=== PATIENT | female | born 1975 | race Two or more races ===

== ENCOUNTER 2020-09-12 12:26 | Outpatient (REF) | payer OTHER, SELFPAY ==
--- NOTE | 2020-09-12 | MM_ITS ---
EXAMINATION: MM DIAGNOSTIC DIGITAL BREAST TOMOSYNTHESIS, BILATERAL US DIAGNOSTIC ULTRASOUND BREAST, LEFT CLINICAL INFORMATION: 44-year-old with palpable area of concern noted at clinical exam 9:00 left breast. Family history breast cancer in mother, age 53. Prior outside mammography from [facility] currently unavailable. The lifetime risk of breast cancer based on the Tyrer-Cuzick Model is 8%. COMPARISON: None. Radiology department staff will attempt to retrieve prior outside mammography to allow for comparison in an addendum report. TECHNIQUE: Digital breast tomosynthesis is performed in both the craniocaudal and mediolateral oblique views along with computer-aided detection (CAD). Synthesized 2D images are generated from the tomosynthesis. Ultrasound is targeted to the medial left breast. Grayscale imaging and color Doppler are performed without and with harmonics. FINDINGS: There are scattered areas of fibroglandular density (ACR BI-RADS breast composition Category b). There are no significant masses, abnormal calcifications, or other abnormalities. No suspicious parenchymal asymmetry. The skin contours are smooth. There is no coarsening of the Kentrell's ligaments. Ultrasound left breast shows no cystic or solid mass or architectural abnormality. No focal duct ectasia. No skin thickening or edema tracking in soft tissue planes. Results are discussed with the patient at time of visit. IMPRESSION: 1. No mammographic evidence of malignancy. 2. Unremarkable targeted left breast ultrasound. ASSESSMENT: BI-RADS 1: Negative RECOMMENDATION: 1. Patient should be managed based on the clinical impression. If clinically indicated, further evaluation may be considered with surgical consult. Decision to proceed with biopsy should be based on clinical grounds and degree of clinical concern. 2. Radiology department staff will attempt to retrieve prior outside mammography to allow for comparison in an addendum report. 3. Otherwise, routine annual screening mammography. This patient's information was entered into a reminder system with a target due date for their next mammogram.
== END 2020-09-12 12:27 | disposition home or self-care (01) ==
LOC: HO.MAMMO 12:26
PROVIDERS: PCP Internal Medicine; Visit Provider Advanced Practice Midwife
DX: N60.02 Solitary cyst of left breast (principal)
CPT/HCPCS: 76642; 77062; 77066; 78013

== ENCOUNTER 2021-12-04 15:16 | Outpatient (REF) | payer OTHER, SELFPAY ==
--- NOTE | ~2021-12-04 | MM_ITS ---
EXAMINATION: MM SCREENING DIGITAL BREAST TOMOSYNTHESIS, BILATERAL CLINICAL INFORMATION: Screening. Asymptomatic. The lifetime risk of breast cancer based on the Tyrer-Cuzick Model is 14%. COMPARISON: Mammography: 09/12/2020, 06/11/2017 TECHNIQUE: Digital breast tomosynthesis is performed in both the craniocaudal and mediolateral oblique views along with computer-aided detection (CAD). Synthesized 2D images are generated from the tomosynthesis. FINDINGS: There are scattered areas of fibroglandular density (ACR BI-RADS breast composition Category b). There are no significant masses, abnormal calcifications, or other abnormalities. No developing density or architectural abnormality. The skin contours are smooth. MM/MM tomosynthesis screening BI IMPRESSION: No mammographic evidence of malignancy. ASSESSMENT: BI-RADS 1: Negative RECOMMENDATION: Routine annual mammography screening. This patient's information was entered into a reminder system with a target due date for their next mammogram.
== END 2021-12-04 15:17 | disposition home or self-care (01) ==
LOC: HO.MAMMO 15:16
PROVIDERS: PCP Internal Medicine; Visit Provider Internal Medicine
DX: Z12.31 Encounter for screening mammogram for malignant neoplasm of breast (principal)
CPT/HCPCS: 77063; 77067

== ENCOUNTER 2023-03-27 07:43 | Outpatient (REF) | payer OTHER, SELFPAY ==
--- NOTE | ~2023-03-27 | MM_ITS ---
EXAMINATION: MM SCREENING DIGITAL BREAST TOMOSYNTHESIS, BILATERAL CLINICAL INFORMATION: Screening. Asymptomatic. Family history breast cancer, mother. The lifetime risk of breast cancer based on the Tyrer-Cuzick Model is 14%. COMPARISON: Mammography: 12/04/2021, 09/12/2020, 06/11/2017 TECHNIQUE: Digital breast tomosynthesis is performed in both the craniocaudal and mediolateral oblique views along with computer-aided detection (CAD). Synthesized 2D images are generated from the tomosynthesis. FINDINGS: There are scattered areas of fibroglandular density (ACR BI-RADS breast composition Category b). Parenchymal pattern is similar to prior exams and there is no developing density or interval or significant mass. There are some scattered calcifications again seen. The axilla and skin contours are unremarkable. No significant changes. MM/MM tomosynthesis screening BI IMPRESSION: No mammographic evidence of malignancy. ASSESSMENT: BI-RADS 2: Benign RECOMMENDATION: Routine annual mammography screening. This patient's information was entered into a reminder system with a target due date for their next mammogram.
== END 2023-03-27 07:44 | disposition home or self-care (01) ==
LOC: HO.MAMMO 07:43
PROVIDERS: PCP Internal Medicine; Visit Provider Internal Medicine
DX: Z12.31 Encounter for screening mammogram for malignant neoplasm of breast (principal)
CPT/HCPCS: 77063; 77067

== ENCOUNTER 2023-08-20 19:49 | Outpatient (REF) | payer OTHER, SELFPAY ==
[2023-08-23 02:59] LABS: HPV mRNA E6/E7 rflx Not Detected (Not Detected)
== END 2023-08-20 19:50 | disposition home or self-care (01) ==
LOC: HO.CHCLNP 19:49
PROVIDERS: Visit Provider Advanced Practice Midwife
DX: Z12.4 Encounter for screening for malignant neoplasm of cervix (principal); Z11.51 Encounter for screening for human papillomavirus (HPV)
CPT/HCPCS: 87624; 88142

== ENCOUNTER 2023-09-04 12:43 | Outpatient (REF) | payer OTHER, SELFPAY | END 2023-09-04 12:44 | disposition home or self-care (01) | LOC: HO.US 12:43 | PROVIDERS: PCP Internal Medicine; Visit Provider Advanced Practice Midwife | DX: D21.9 Benign neoplasm of connective and other soft tissue, unspecified (principal) | CPT/HCPCS: 76830; 76856 ==

== ENCOUNTER 2023-10-08 11:25 | Outpatient (REF) | payer OTHER, SELFPAY | END 2023-10-08 11:26 | disposition home or self-care (01) | LOC: HO.LNP 11:25 | PROVIDERS: PCP Internal Medicine; Visit Provider Obstetrics & Gynecology | DX: N93.9 Abnormal uterine and vaginal bleeding, unspecified (principal); R87.618 Other abnormal cytological findings on specimens from cervix uteri; N89.8 Other specified noninflammatory disorders of vagina | CPT/HCPCS: 58100; 81025; 88305 ==

== ENCOUNTER 2023-10-08 11:25 | Outpatient (AMB) | payer OTHER, SELFPAY ==
--- NOTE | 2023-10-08 11:29 | MHC.OFFVIS ---
Intake Vital Signs 10/08/23 11:34 Height 5 ft 1 in Weight 186 lb BMI 35.1 Intake Visit Reasons: SENIOR QUANTITY SURVEYOR Endometrial Myoma/Colpo Mercantile Agent Required: No Information Interpreted: non-clinical & clinical Microarray Operations Vice President: Microarray Operations Vice President Present (Chloe RODRIGUEZ) Accompanied by: Self / Same As Patient Allergies No Known Allergies Allergy (Verified 10/08/23 11:35) Is last menstrual period known: Yes Last menstrual period: 09/12/23 HPI HPI Comments History of Present Illness Details The patient is presenting referred from her PCP regarding endometrial cells on her recent Pap smear which was negative/HPV negative. The patient has been complaining of heavy menstrual cycle associated with pelvic cramping and passage of blood clots over the last few months. Pelvic ultrasound was done recently. Last mammogram was done in 03/24 was BI-RADS 2 [facility] Medical History (Updated 10/08/23 @ 11:57 by Apollo Mcdaniel MD) GERD (gastroesophageal reflux disease) Asthma Surgical History (Updated 10/08/23 @ 11:40 by Chloe Aparicio CMA) History of loop electrical excision procedure (LEEP) Hx of cholecystectomy Hx of tubal ligation Family History (Updated 10/08/23 @ 11:41 by Chloe Aparicio CMA) Mother Asthma Breast cancer Social History Household Members: Family Housing: Apartment Alcohol intake: never Patient Tobacco Use Status: Never used Tobacco Current occupational status: employed Current occupation: PSR in [employer] Sexual orientation: Straight/Heterosexual Gender identity: Female Female Reproductive History Menstrual Age of Menarche: 10 Duration of menses: 3-5 days Date of last menstrual period: 09/12/23 control method: permanent sterilization Total pregnancies: 2 Full term: 2 Number of Living Children: 2 Review of Systems Const All systems reviewed & are unremarkable except as noted in HPI and below Card Reports as per HPI Resp Reports as per HPI GI Reports as per HPI and Reports no additional complaints Reports as per HPI Physical Exam Vital Signs: BMI result Body Mass Index 35.1 Const General: cooperative, healthy appearing and comfortable Chest Chest palpation & inspection: normal inspection of the chest and normal palpation of entire chest wall Breast/axilla inspection: normal inspection of the breasts and normal inspection of the axillae Breast/axilla palpation: normal palpation of the breasts, normal palpation of the axillae and no axillary lymphadenopathy Resp Effort & Inspection: normal respiratory effort Auscultation: clear to auscultation bilaterally Percussion: percussion normal Cardio Palpation: normal PMI Rate: regular rate Rhythm: regular rhythm Heart sounds: no murmurs and no rubs Peripheral pulses: Peripheral pulses 2+ throughout GI Inspection: Yes normal to inspection Palpation (GI): Soft to palpation, nontender, no guarding, not rigid and No hepatosplenomegaly present Percussion: Yes normal to percussion Auscultation: normal bowel sounds Rectal Exam - Female: deferred General: Yes bladder normal to palpation External Female Exam: No lesion Speculum Exam - Vagina: normal palpation, normal vaginal discharge, not erythematous and other (Right vaginal wall 0.5 cm proximal dark lesion) Speculum Exam - Cervix: normal appearance of the cervix and normal palpation Bimanual exam- vagina & uterus: normal bimanual exam, normal palpation, uterine size normal, bladder normal to palpation, consistency normal and normal palpation Bimanual Exam- Adnexa, other: normal adnexae, no masses and no tenderness Office Procedures Endometrial Biopsy Details: The patient was counseled regarding the indication and benefits of endometrial sampling to rule out endometrial pathology including not limited to endometrial hyperplasia or endometrial cancer and others; The alternatives (Either do nothing vs. hysteroscopy D&C) & the risks were discussed with the patient including but not limited: pain, uterine perforation, bleeding, infection, possible injury to bladder, bowel, ureter, possible need for blood transfusion with all its possible risks. The patient verbalized understanding all questions answered and signed consent. The patient was placed into the dorsal lithotomy position; a speculum was inserted in the vagina. Using aseptic technique for the procedure, the cervix was cleansed with Betadine. The anterior lip of the cervix was grasped with a single tooth tenaculum. The uterus was sounded to 7 cm with a 4 mm Pipelle was used. Tissues samples were obtained and placed in formalin, in a patient labeled container and sent to the pathology department. At the end of the procedure, there was minimal bleeding noted The patient tolerated the procedure well and was discharged in good condition with the following instructions: Nothing in the vagina until the bleeding stops. No sex until the bleeding stops, to call if any of the following occurs: fever (>100.4), flu-like symptoms, abdominal pain, heavy bleeding, four smelling vaginal discharge. The patient was instructed to schedule a Follow up appointment in 2 weeks to discuss pathology results of the biopsy and treatment options. This note was generated with a voice recognition program. Some errors may have been overlooked during the review of this note. Sometimes these errors may affect the content or meaning of a given sentence. 25669-Cekvlvormfa Biopsy Results AMB Test Urine AMB Test Urine Negative Last Edit by Chloe Aparicio CMA on 10/08/23 11:48 Assessment & Plan Assessment & Plan (1) Abnormal uterine bleeding: Code(s): N93.9 - Abnormal uterine and vaginal bleeding, unspecified Plan: GC and chlamydia taken CBC, TSH, HCG, prolactin, FSH/LH ordered. Pelvic ultrasound done recently. Discussed with the patient the different causes of abnormal bleeding including thyroid disorders, uterine and ovarian pathology, endometrial hyperplasia, carcinoma and other potential causes. Discussed with the patient the work up including CBC (to r/o anemia), TSH, prolactin, FSH/LH, pelvic Ultrasound (recently done), endometrial biopsy to r/o endometrial pathology. All questions answered and the patient verbalized understanding. Instructed the patient to schedule an appointment for an endometrial biopsy in 2 weeks. (2) Unexplained endometrial cells on cervical Pap smear: Code(s): R87.618 - Other abnormal cytological findings on specimens from cervix uteri Plan: Discussed the patient the results of Pap smear showing normal endometrial cells, recommended endometrial sampling to rule out endometrial pathology including endometrial hyperplasia and/or malignancy, EMB done, see procedure note (3) Vaginal lesion: Code(s): N89.8 - Other specified noninflammatory disorders of vagina Plan: Discussed with the patient the finding on pelvic exam showing a right 0.5 cm proximal vaginal lesion, recommended excisional biopsy. Instructions given to patient to schedule an appointment for excision biopsy within 2 weeks. All questions answered, the patient verbalized understanding Orders: Orders CT NG by PCR Today N93.9 - Abnormal uterine and vaginal bleeding, unspecified, R87.618 - Other abnormal cytological findings on specimens from cervix uteri AMB Endometrial Biopsy Today N93.9 - Abnormal uterine and vaginal bleeding, unspecified, R87.618 - Other abnormal cytological findings on specimens from cervix uteri AMB HCG Urine Test Today Z32.02 - Encounter for test, result negative Surgical Today N93.9 - Abnormal uterine and vaginal bleeding, unspecified, R87.618 - Other abnormal cytological findings on specimens from cervix uteri Coding Level of Care Code New Pt Level 3 (16444) Procedure Only Diagnoses Abnormal uterine bleeding N93.9 Unexplained endometrial cells on cervical Pap smear R87.618 Vaginal lesion N89.8 CPT Codes Endometrial Biopsy - CPT: 18719-Qobgtominva Biopsy ([id number])
[2023-10-08 11:34] VITALS: BMI 35.1
== END 2023-10-08 12:09 | disposition home or self-care (01) ==
PROVIDERS: PCP Internal Medicine; Visit Provider Obstetrics & Gynecology
DX: N93.9 Abnormal uterine and vaginal bleeding, unspecified (principal); R87.618 Other abnormal cytological findings on specimens from cervix uteri; N89.8 Other specified noninflammatory disorders of vagina; Z32.02 Encounter for pregnancy test, result negative
CPT/HCPCS: 58100

== ENCOUNTER 2023-10-08 12:09 | Outpatient (REF) | payer OTHER, SELFPAY ==
[2023-10-08 13:46] LABS: Hematocrit 35.4 % (37.0-47.0); Hemoglobin 11.4 g/dl (12.0-16.0); Mean Corpuscular HGB Conc 32.2 g/dl (31.0-35.0); Mean Corpuscular Hemoglobin 27.1 pg (27.0-33.0); Mean Corpuscular Volume 84.3 fL (80.0-98.0); Platelet Count 305 X10*3/uL (160-400); Red Cell Distribution Width 14.2 % (11.0-16.0); White Blood Count 8.7 X10*3/uL (4.8-10.8)
[2023-10-08 14:32] LABS: HCG Quantitative < 2 mIU/mL; TSH reflex Free T4 1.39 uIU/mL (0.32-4.0)
[2023-10-09 12:33] LABS: CT PCR NOT DETECTED (Not Detect.); NG PCR NOT DETECTED (Not Detect.)
[2023-10-10 02:58] LABS: Follicle Stimulating Hormone 6.5 mIU/mL; Lutenizing Hormone 2.9 mIU/mL; Prolactin 5.9 ng/mL
== END 2023-10-08 12:10 | disposition home or self-care (01) ==
LOC: HO.LAB 12:09
PROVIDERS: Visit Provider Obstetrics & Gynecology
DX: N93.9 Abnormal uterine and vaginal bleeding, unspecified (principal); R87.618 Other abnormal cytological findings on specimens from cervix uteri; Z20.2 Contact with and (suspected) exposure to infections with a predominantly sexual mode of transmission
CPT/HCPCS: 0353U; 83001; 83002; 84146; 84443; 84702; 85027

== ENCOUNTER 2023-11-20 07:30 | Outpatient (REF) | payer OTHER, SELFPAY | END 2023-11-20 07:31 | disposition home or self-care (01) | LOC: HO.LNP 07:30 | PROVIDERS: PCP Internal Medicine; Visit Provider Obstetrics & Gynecology | DX: N89.8 Other specified noninflammatory disorders of vagina (principal) | CPT/HCPCS: 56605; 88305 ==

== ENCOUNTER 2023-11-20 07:30 | Outpatient (AMB) | payer OTHER, SELFPAY ==
--- NOTE | 2023-11-20 07:33 | MHC.OFFVIS ---
Intake Vital Signs 11/20/23 07:37 Height 5 ft 1 in Weight 185 lb 3.013 oz BMI 35.0 BP 122/72 Intake Visit Reasons: EMB Result/Vulva lesion Smoke Eater Required: No Information Interpreted: non-clinical & clinical Top Screw: Top Screw Present (Chloe RODRIGUEZ) Accompanied by: Self / Same As Patient Allergies No Known Allergies Allergy (Verified 11/20/23 07:38) Is last menstrual period known: Yes Last menstrual period: 11/04/23 HPI HPI Comments History of Present Illness Details Presenting for right vaginal bleeding biopsy PFSH Medical History (Updated 10/08/23 @ 11:57 by Apollo Mcdaniel MD) GERD (gastroesophageal reflux disease) Asthma Surgical History (Updated 10/08/23 @ 11:40 by Chloe Aparicio CMA) History of loop electrical excision procedure (LEEP) Hx of cholecystectomy Hx of tubal ligation Family History (Updated 10/08/23 @ 11:41 by Clhoe Aparicio CMA) Mother Asthma Breast cancer Social History (Updated 10/08/23 @ 11:43 by Chloe Aparicio CMA) Household Members: Family Housing: Apartment Alcohol intake: never Patient Tobacco Use Status: Never used Tobacco Current occupational status: employed 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 Preop dx: Right vaginal dark lesion Op: Right vaginal dark lesion excisional biopsy Post op: Same Anesthesia: Lidocaine 1% 3cc used Procedure: Using betadine the area was scrubbed and draped in the usual manner. 3 cc of lidocaine was used for anesthesia at the left vulvar lesion area ; using scissors and pickup the Right vaginal dark lesion was excised, Vicryl was used to approximate the edges. Pressure was used for hemostasis. The patient tolerated the procedure well. Discharge Instructions: The patient was instructed to schedule an appointment in 2 weeks for follow-up and to call if temp>100.4, area of the biopsy redness or pain, nausea/vomiting. This note was generated with a voice recognition program. Some errors may have been overlooked during the review of this note. Sometimes these errors may affect the content or meaning of a given sentence. 38195-Cgyibd of Vulva/Perineum Procedure code (CPT) selection complete Assessment & Plan Assessment & Plan (1) Vaginal lesion: Code(s): N89.8 - Other specified noninflammatory disorders of vagina Plan: Right vaginal excision lesion biopsy done, see procedure Orders: Orders AMB ACCOUNTS RECEIVABLE ADMINISTRATOR Biopsy Today N89.8 - Other specified noninflammatory disorders of vagina Coding Level of Care Code Procedure Only Diagnoses Vaginal lesion N89.8 CPT Codes ACCOUNTS RECEIVABLE ADMINISTRATOR Biopsy - CPT: 26424-Wssrfc of Vulva/Perineum ([id number])
[2023-11-20 07:37] VITALS: BP 122/72; BMI 35.0
== END 2023-11-20 08:54 | disposition home or self-care (01) ==
PROVIDERS: PCP Internal Medicine; Visit Provider Obstetrics & Gynecology
DX: N89.8 Other specified noninflammatory disorders of vagina (principal)
CPT/HCPCS: 56605

== ENCOUNTER 2023-12-24 08:04 | Outpatient (AMB) | payer OTHER, SELFPAY ==
--- NOTE | 2023-12-24 08:06 | MHC.OFFVIS ---
Intake Vital Signs 12/24/23 08:12 Height 5 ft 1 in Weight 185 lb 3.013 oz BMI 35.0 BP 102/72 Intake Visit Reasons: Biopsy Results/EMB Results Desulfurizer Operator Required: No Information Interpreted: non-clinical & clinical Accompanied by: Daughter Allergies No Known Allergies Allergy (Verified 12/24/23 08:13) Is last menstrual period known: Yes Last menstrual period: 12/05/23 HPI HPI Comments History of Present Illness Details The patient is presenting for follow-up to discuss the results of her abnormal uterine bleeding workup and options of treatment. The following workup was done.: H&H= 11.4/35.4 TSH, prolactin, hCG, GC and chlamydia were negative. FSH/LH 6.5/2.9, premenopausal range Endometrial biopsy pathology showed secretory endometrium with no evidence of hyperplasia and/or malignancy. Co testing was done was negative, with endometrial cells present. Mammogram was BI-RADS 1. Vulvar lesion biopsy pathology showed benign cyst consistent with Bartholin's gland cyst Pelvic ultrasound showed the following: The uterus is of normal size and echogenicity, measuring 12.6 x 7.9 x 8.6 cm. The uterus is anteverted. A regular, homogeneous endometrium is identified measuring 1.7 cm. Nabothian cysts are seen within the cervix FIBROIDS: There are 3 fibroids seen. 1. Location: Posterior body, myometrial. Size: 1.6 x 1.2 x 1.5 cm. Prior: 1.8 x 0.9 x 1.4 cm. Fibroid characteristics: Heterogeneously hyperechoic. 2. Location: Anterior body, myometrial. Size: 1.9 x 1.8 x 1.6 cm. Prior: 1.0 x 0.7 x 0.9 cm. Fibroid characteristics: Heterogeneous echotexture. 3. Location: Fundal, myometrial. Size: 5.7 x 5.9 x 6.1 cm. Prior: 3.7 x 3.0 x 3.6 cm. Fibroid characteristics: Heterogeneous echotexture. Both ovaries are of normal size and echogenicity. The right ovary measures 3.6 x 1.5 x 1.5 cm for a volume of 4.2 mL. The left ovary measures 3.5 x 1.9 x 2.8 cm for a volume of 9.6 mL. The left ovary contains a 2.2 cm benign, simple follicle, for which no imaging follow-up is recommended. There is no pelvic free fluid. 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[employer] Sexual orientation: Straight/Heterosexual Gender identity: Female Female Reproductive History Menstrual Age of Menarche: 10 Date of last menstrual period: 12/05/23 Review of Systems Const All systems reviewed & are unremarkable except as noted in HPI and below Reports as per HPI and Reports no additional complaints GI Reports no additional complaints Reports no additional complaints Physical Exam Vital Signs: Last Vital Signs BP 102/72 12/24/23 08:12 BMI result Body Mass Index 35.0 Assessment & Plan Assessment & Plan (1) Abnormal uterine bleeding: Code(s): N93.9 - Abnormal uterine and vaginal bleeding, unspecified Plan: Discussed with the patient the results of the work up done and options of treatment including Lysteda, BCP's, Mirena IUD, endometrial ablation and hysterectomy. All pros, cons, risks and benefits if each option was discussed with the patient and the patient decided to go ahead with Lysteda , so a more detailed discussion re: Lysteda including mechanism of action, benefits, risks including but not limited to thrombosis and strokes, Instructions were given on how to use, 2 tablets p.o. 3 times a day day 1 up to 3-5 days of menses and to schedule a 3 months follow-up appointment. The patient verbalized understanding and agreed with the plan. (2) Uterine myoma: Code(s): D25.9 - Leiomyoma of uterus, unspecified Plan: Discussed with the patient the findings on pelvic ultrasound & the risk of myosarcoma; discussed with the patient the options of treatment including expectant management versus hysterectomy; the pros and cons, risks benefits of each approach were discussed with the patient including the fact that in cases of myosarcoma, surgical treatment can lead to early diagnosis and positively affects the prognosis; after further discussion, the patient decided to proceed with expectant management. Will repeat pelvic ultrasound in 6. Instructions given to patient to call in case any of the following occurs: pressure symptoms, abnormal uterine bleeding, pelvic pain; and to schedule a six-month office follow-up appointment after repeat ultrasound . All questions answered, the patient verbalized understanding and agreed with the plan . (3) Vaginal lesion: Code(s): N89.8 - Other specified noninflammatory disorders of vagina Plan: Discussed with the patient the results the pathology, the patient was reassured, all questions answered, the patient verbalized understanding. (4) Unexplained endometrial cells on cervical Pap smear: Code(s): R87.618 - Other abnormal cytological findings on specimens from cervix uteri Plan: Discussed with the patient the results the EMB pathology. All questions answered, the patient verbalized understanding Orders: Orders US pelvic and transvaginal 6 Months D25.9 - Leiomyoma of uterus, unspecified Medications: New tranexamic acid Start 1st day of menses and take it up to 3-5 days of menses. 1,300 mg (2 x 650 mg) PO TID 30 tabs 2RF 5 days Coding Level of Care Code Est Pt Level 3 (75714) Diagnoses Abnormal uterine bleeding N93.9 Uterine myoma D25.9 Vaginal lesion N89.8 Unexplained endometrial cells on cervical Pap smear R87.618
[2023-12-24 08:12] VITALS: BP 102/72; BMI 35.0
== END 2023-12-24 08:40 | disposition home or self-care (01) ==
LOC: HO.HWS 08:04
PROVIDERS: PCP Internal Medicine; Visit Provider Obstetrics & Gynecology
DX: N93.9 Abnormal uterine and vaginal bleeding, unspecified (principal); D25.9 Leiomyoma of uterus, unspecified; N89.8 Other specified noninflammatory disorders of vagina; R87.618 Other abnormal cytological findings on specimens from cervix uteri
CPT/HCPCS: 99213

== ENCOUNTER → 2023-12-24 08:04 | Outpatient (BNVA) | payer OTHER, SELFPAY | PROVIDERS: PCP Internal Medicine; Visit Provider Obstetrics & Gynecology ==

== ENCOUNTER 2024-03-31 13:09 | Outpatient (AMB) | payer OTHER, SELFPAY ==
[2024-03-31 13:19] VITALS: BMI 35.0
--- NOTE | 2024-03-31 13:19 | A.OFFVIS_ITS ---
Vital Signs 03/31/24 13:19 Height 5 ft 1 in Weight 185 lb 3.013 oz BMI 35.0 Intake Visit Reasons: Med follow up Floor Installer Required: No Information Interpreted: non-clinical & clinical Accompanied by: Daughter Allergies No Known Allergies Allergy (Verified 03/31/24 13:19) HPI Comments Details: Presenting for follow-up. The patient tried tranexamic acid for 3 months but did not seem to be relieving her heavy menstrual cycles. The following workup was done.: H&H= 11.4/35.4 TSH, prolactin, hCG, GC and chlamydia were negative. FSH/LH 6.5/2.9, premenopausal range Endometrial biopsy pathology showed secretory endometrium with no evidence of hyperplasia and/or malignancy. Co testing was done was negative, with endometrial cells present. Mammogram was BI-RADS 1. Vulvar lesion biopsy pathology showed benign cyst consistent with Bartholin's gland cyst Pelvic ultrasound showed the following: The uterus is of normal size and echogenicity, measuring 12.6 x 7.9 x 8.6 cm. The uterus is anteverted. A regular, homogeneous endometrium isident ified measuring 1.7 cm. Nabothian cysts are seen within the cervix FIBROIDS: There are 3 fibroids seen. 1. Location: Posterior body, myometrial. Size: 1.6 x 1.2 x 1.5 cm. Prior: 1.8 x 0.9 x 1.4 cm. Fibroid characteristics: Heterogeneously hyperechoic. 2. Location: Anterior body, myometrial. Size: 1.9 x 1.8 x 1.6 cm. Prior: 1.0 x 0.7 x 0.9 cm. Fibroid characteristics: Heterogeneous echotexture. 3. Location: Fundal, myometrial. Size: 5.7 x 5.9 x 6.1 cm. Prior: 3.7 x 3.0 x 3.6 cm. Fibroid characteristics: Heterogeneous echotexture. Both ovaries are of normal size and echogenicity. The right ovary measures 3.6 x 1.5 x 1.5 cm for a volume of 4.2 mL. The left ovary measures 3.5 x 1.9 x 2.8 cm for a volume of 9.6 mL. The left ovary contains a 2.2 cm benign, simple follicle, for which no imaging follow-up is recommended. There is no pelvic free fluid. No adnexal mass is seen [facility] Medical History GERD (gastroesophageal reflux disease) Asthma Surgical History History of loop electrical excision procedure (LEEP) Hx of cholecystectomy Hx of tubal ligation Family History Mother Asthma Breast cancer Social History Household Members: Family Housing: Apartment Alcohol intake: never Patient Tobacco Use Status: Never used Tobacco Current occupational status: employed Current occupation: PSR in [employer] Sexual orientation: Straight/Heterosexual Gender identity: Female Female Reproductive History Menstrual Age of Menarche: 10 Review of Systems Const All systems reviewed & are unremarkable except as noted in HPI and below Reports as per HPI and Reports no additional complaints GI Reports no additional complaints Reports no additional complaints Physical Exam Vital Signs: BMI result Body Mass Index 35.0 Assessment & Plan Assessment & Plan (1) Abnormal uterine bleeding: Comment: With uterine myomas Code(s): N93.9 - Abnormal uterine and vaginal bleeding, unspecified Category: Medical Plan: Discussed with the patient the results of the ultrasound and the size of the myomas. In addition discussed with the patient options of treatment for myomas including: Serial ultrasounds periodically to follow-up on the size of the myoma while targeting the treatment against fibroids related symptoms ( control pills, Mirena IUD, progesterone treatment, GnRH agonist/antagonist, uterine artery embolization or endometrial ablation) versus surgical treatment including hysterectomy and or myomectomy. All pros and cons, risks and benefits of all options were discussed with the patient. The patient decided to proceed with surgical management. Discussed with the patient the different types of hysterectomies including, vaginal, laparoscopic assisted vaginal, robotic assisted laparoscopic,& abdominal with BSO. All pros, cons, r/b of each approach were discussed the patient including evidence that morbidity is less and recovery is shorter with minimally invasive approaches to hysterectomy. Discussed with the patient the lack of availability of the robot Jinii robot and/or minimally invasive library circulation department chief specialist at [facility]. Will refer the patient to [facility] minimally invasive library circulation department chief. Instructed the patient to call our office back in case a referral appointment is not scheduled, missed or canceled so that we will assist on rescheduling another appointment, the patient verbalized understanding agreed with the plan. Coding Level of Care Code Est Pt Level 3 (85103) Diagnoses Abnormal uterine bleeding N93.9
== END 2024-03-31 14:03 | disposition home or self-care (01) ==
PROVIDERS: PCP Internal Medicine; Visit Provider Obstetrics & Gynecology
DX: N93.9 Abnormal uterine and vaginal bleeding, unspecified (principal)
CPT/HCPCS: 99213

== ENCOUNTER → 2024-03-31 13:09 | Outpatient (BNVA) | payer OTHER, SELFPAY | PROVIDERS: PCP Internal Medicine; Visit Provider Obstetrics & Gynecology ==

== ENCOUNTER 2024-04-10 08:41 | Outpatient (REF) | payer OTHER, SELFPAY ==
[2024-04-10 14:31] LABS: MANUAL DIFF FLAG NO
[2024-04-10 14:42] LABS: Basophils Percent Auto 0.3 % (0-2); Eosinophils Absolute Auto 0.3 X10*3/uL (0.0-0.4); Eosinophils Percent Auto 4.5 % (0-4); Hematocrit 36.5 % (37.0-47.0); Hemoglobin 11.4 g/dl (12.0-16.0); Imm Gran Abs Auto 0.02 X10*3/uL (0.00-0.03); Imm Gran Pct Auto 0.3 % (0.0-0.4); Lymphocytes Percent Auto 32.6 % (20-40); Mean Corpuscular HGB Conc 31.2 g/dl (31.0-35.0); Mean Corpuscular Hemoglobin 26.6 pg (27.0-33.0); Mean Corpuscular Volume 85.3 fL (80.0-98.0); Monocytes Absolute Auto 0.7 X10*3/uL (0.1-1.2); Monocytes Percent Auto 11.3 % (2-11); Neutrophils Absolute Auto 3.2 x10*3/uL (2.0-8.3); Platelet Count 283 X10*3/uL (160-400); Red Blood Count 4.28 X10*6/uL (4.20-5.50); Red Cell Distribution Width 14.8 % (11.0-16.0); White Blood Count 6.2 X10*3/uL (4.8-10.8)
[2024-04-10 15:26] LABS: Alanine Aminotransferase 11 U/L (0-31); Albumin Level 3.7 g/dL (3.5-5.0); Alkaline Phosphatase 49 U/L (39-117); Anion Gap 13 (12-20); Aspartate Amino Transferase 17 U/L (5-31); Bilirubin Total 0.2 mg/dL (0.0-1.0); Blood Urea Nitrogen 9 mg/dL (9-16); Calcium 8.8 mg/dL (8.4-10.2); Carbon Dioxide 21 mmol/L (22-29); Chloride 109 mmol/L (96-108); Cholesterol 157 mg/dL (<200); Estimated Glomerular Filt Rate > 60; Glucose Random 83 mg/dL (60-115); HDL Cholesterol 39 mg/dL (>40); LDL Cholesterol Calculated 101 mg/dL (<100); Potassium 4.4 mmol/L (3.3-5.1); Sodium 139 mmol/L (135-145); Total Protein 7.5 g/dL (6.5-8.0); Triglycerides 86 mg/dL (<150)
[2024-04-10 15:42] LABS: Vitamin B12 561 pg/mL (200-900)
[2024-04-10 15:45] LABS: TSH reflex Free T4 2.03 uIU/mL (0.32-4.0)
[2024-04-13 08:50] LABS: HBS Num1 2.35 mIU/mL (0-7.99); HBc Num1 0.11 S/CO (0.00-0.79); HBsAGNum1 0.31 S/CO (0.00-0.99); Hepatitis A Antibody IgM 0.12 Index (0-0.79); Hepatitis B Core Antibody Nonreactive (Nonreactive); Hepatitis B Surface Antigen Negative (Negative); ~Hepatitis A Antibody IgM Nonreactive (Nonreactive); ~Hepatitis B Surface Antibody NONREACTIVE (Nonreactive); ~Hepatitis C Antibody Nonreactive (Nonreactive)
== END 2024-04-10 08:42 | disposition home or self-care (01) ==
LOC: HO.CHCLDS 08:41
PROVIDERS: Visit Provider Internal Medicine
DX: Z00.00 Encounter for general adult medical examination without abnormal findings (principal); R53.83 Other fatigue; K59.09 Other constipation; G47.09 Other insomnia; E66.9 Obesity, unspecified
CPT/HCPCS: 36415; 80053; 80061; 82306; 82607; 82746; 84443; 85025; 86704; 86706; 86709; 86803; 87340

== ENCOUNTER 2024-04-14 16:27 | Outpatient (REF) | payer OTHER, SELFPAY ==
[2024-04-14 18:08] LABS: Retic HGB Equivalent 30.7 pg (30.0-35.0); Reticulocytes Absolute 0.045 X10*6/uL (0.026-0.095)
[2024-04-14 18:55] LABS: Iron 40 mcg/dL (30-160); Percent Iron Saturation 15 % (15-50); Total Iron Binding Capacity 261 mcg/dL (228-428); Unsaturated Iron Binding 221 ug/dL
[2024-04-14 19:12] LABS: Ferritin 25 ng/mL (10-250)
== END 2024-04-14 16:28 | disposition home or self-care (01) ==
LOC: HO.CHCLDS 16:27
PROVIDERS: Visit Provider Internal Medicine
DX: D50.9 Iron deficiency anemia, unspecified (principal)
CPT/HCPCS: 36415; 82728; 83540; 85045

== ENCOUNTER 2025-05-10 08:24 | Outpatient (REF) | payer OTHER, SELFPAY ==
[2025-05-10 14:24] LABS: MANUAL DIFF FLAG NO
[2025-05-10 14:31] LABS: Basophils Percent Auto 0.5 % (0-2); Eosinophils Absolute Auto 0.2 X10*3/uL (0.0-0.4); Eosinophils Percent Auto 2.6 % (0-4); Hematocrit 37.6 % (37.0-47.0); Hemoglobin 11.7 g/dl (12.0-16.0); Imm Gran Abs Auto 0.04 X10*3/uL (0.00-0.03); Imm Gran Pct Auto 0.5 % (0.0-0.4); Lymphocytes Absolute Auto 1.8 X10*3/uL (1.2-4.9); Mean Corpuscular HGB Conc 31.1 g/dl (31.0-35.0); Mean Corpuscular Hemoglobin 26.9 pg (27.0-33.0); Mean Corpuscular Volume 86.4 fL (80.0-98.0); Mean Platelet Volume 9.8 fL (9.4-12.3); Monocytes Absolute Auto 0.6 X10*3/uL (0.1-1.2); Monocytes Percent Auto 7.2 % (2-11); Neutrophils Absolute Auto 5.6 x10*3/uL (2.0-8.3); Neutrophils Percent Auto 67.2 % (45-73); Platelet Count 298 X10*3/uL (160-400); Red Blood Count 4.35 X10*6/uL (4.20-5.50); Red Cell Distribution Width 14.4 % (11.0-16.0); White Blood Count 8.3 X10*3/uL (4.8-10.8)
[2025-05-10 15:04] LABS: Alanine Aminotransferase 11 U/L (0-31); Albumin Level 3.8 g/dL (3.5-5.0); Alkaline Phosphatase 56 U/L (39-117); Anion Gap 9 (12-20); Aspartate Amino Transferase 23 U/L (5-31); Bilirubin Total 0.3 mg/dL (0.0-1.0); Blood Urea Nitrogen 8 mg/dL (9-16); Calcium 8.4 mg/dL (8.4-10.2); Carbon Dioxide 25 mmol/L (22-29); Chloride 109 mmol/L (96-108); Cholesterol 175 mg/dL (<200); Estimated Glomerular Filt Rate > 60; Glucose Random 93 mg/dL (60-115); HDL Cholesterol 38 mg/dL (>40); LDL Cholesterol Calculated 117 mg/dL (<100); Potassium 4.1 mmol/L (3.3-5.1); Sodium 139 mmol/L (135-145); TSH reflex Free T4 1.45 uIU/mL (0.32-4.0); Total Protein 7.2 g/dL (6.5-8.0); Triglycerides 101 mg/dL (<150)
== END 2025-05-10 08:25 | disposition home or self-care (01) ==
LOC: HO.CHCLDS 08:24
PROVIDERS: Visit Provider Internal Medicine
DX: Z00.00 Encounter for general adult medical examination without abnormal findings (principal); E66.811 Obesity, class 1
CPT/HCPCS: 36415; 80053; 80061; 84443; 85025

== ENCOUNTER 2025-07-14 08:15 | Outpatient (REF) | payer OTHER, SELFPAY ==
--- NOTE | ~2025-07-14 | MM_ITS ---
EXAMINATION: MM SCREENING DIGITAL BREAST TOMOSYNTHESIS, BILATERAL CLINICAL INFORMATION: Screening. Asymptomatic. COMPARISON: Comparison made to multiple prior, most recent March 27, 2023, and most remote June 11, 2017. TECHNIQUE: Digital breast tomosynthesis is performed in both the craniocaudal and mediolateral oblique views along with computer-aided detection (CAD). Synthesized 2D images are generated from the tomosynthesis. FINDINGS: BREAST COMPOSITION: There are scattered areas of fibroglandular density (ACR BI-RADS breast composition Category b). BILATERAL BREASTS: No significant masses, suspicious calcifications or other abnormalities are seen in either breast. MM/MM tomosynthesis screening BI IMPRESSION: BILATERAL BREASTS: Negative, no mammographic evidence of malignancy. Normal interval follow-up is recommended in 12 months. ASSESSMENT: BI-RADS 1 - Negative RECOMMENDATION: Routine annual mammography screening. FOLLOW-UP: 1 year F/U This examination should not preclude the clinical evaluation of a suspicious palpable abnormality. This patient's information was entered into a reminder system with a target due date for their next mammogram. Electronically signed by: Jose Aguayo MD 07/19/2025 05:51 PM EDT
--- OUTSIDE RECORDS SUMMARY | 2025-07-14 08:20 | XMS_ITS | Clinical Summary ---
Author Organization 175 [facility] Address [address] [place] [address] Phone Care Team Providers Care Transition Assistant Name Role Phone Monica Zamorano MD Primary Care Provider [phone] Allergies No known active allergies Medications albuterol HFA (PROAIR HFA ; PROVENTIL HFA ; VENTOLIN HFA) 90 mcg/actuation inhaler INHALE 2 PUFFS INTO THE LUNGS EVERY 4 HOURS NEEDED FOR COUGH OR WHEEZING FOR UP TO 30 DAYS. 18 each 05/14/20 25 Active topiramate (TOPAMAX) 25 mg tablet Take 1 tablet (25 mg total) by mouth 2 times daily. 05/06/20 25 026 Active senna 8.6 mg tablet TAKE 1 TABLET BY G-TUBE ROUTE EVERY DAY NEEDED FOR CONSTIPATION 05/25/20 25 Active phentermine 15 mg capsule Take 1 capsule (15 mg total) by mouth. 05/06/20 25 Active melatonin 5 mg tablet Take 1 tablet (5 mg total) by mouth at bedtime. 05/07/20 25 Active loratadine (CLARITIN) 10 mg tablet Take 1 tablet (10 mg total) by mouth 1 (one) time each day. Active famotidine (PEPCID) 20 mg tablet Take 1 tablet (20 mg total) by mouth 2 times daily. 04/29/20 25 Active fluticasone-salme terol (ADVAIR DISKUS) 250-50 mcg/dose diskus inhaler Inhale 1 puff by mouth 2 (two) times a day. 1 each 05/26/20 25 026 Active montelukast (SINGULAIR) 10 mg tabletIndications :Moderate persistent asthma, uncomplicated TAKE 1 TABLET BY MOUTH EVERYDAY AT BEDTIME 90 tablet 3 06/09/20 Active Encounters Date Type Department Care Team Description 05/26/2025 10:30 AM EDT Office Visit [facility] [address] [phone] All Yee MD Moderate persistent asthma, unspecified whether complicated (Primary Dx) from Last 3 Months Medical History Medical History Date Comments Asthma DX:Asthma Seasonal allergies DX:Seasonal a llergies Social History Tobacco Use Types Packs/Day Years Used Date Smoking Tobacco: Never Smokeless Tobacco: Never Alcohol Use Standard Drinks/Week Comments No 0 (1 standard drink = 0.6 oz pur e alcohol) Comments Unknown Sex and Gender Information Value Date Recorded Sex Assigned at Not on file Legal Sex Female 2:52 AM EST Gender Identity Not on file Sexual Orientation Not on file Obstetrics History Last Filed Vital Signs Vital Sign Reading Time Taken Comments Blood Pressure 104/66 05/26/2025 10:34 AM EDT Pulse 96 05/26/2025 10:34 AM EDT Temperature 36.2 C (97.2 F) 05/26/2025 10:34 AM EDT Respiratory Rate 16 05/26/2025 10:34 AM EDT Oxygen Saturation 100% 05/26/2025 10:34 AM EDT Inhaled Oxygen Concentration - - Weight 81.2 kg (179 lb) 05/26/2025 10:34 AM EDT Height 154.9 cm (5' 1 ) 05/26/2025 10:34 AM EDT Body Mass Index 33.82 05/26/2025 10:34 AM EDT Plan of Treatment Upcoming Encounters Date Type Department Care Team (Late st Contact Info) Description 05/26/2026 10:45 AM EDT Office Visit [facility] [address] [phone] All Yee MD 175 [facility] [address] [place] [address] Health Maintenance Due Date Last Done Comments Colorectal Cancer Screening: Colonoscopy 11/10/2022 HIV Screening 11/10/2022 Hepatitis C Screening 11/10/2022 Social Influencers of Health Screening 11/10/2022 COVID-19 Vaccine ( season) 2024 11/05/2021, 03/24/2021, 02/24/2021 Depression Screening 12/02/2024 Breast Cancer Screening 03/27/2025 03/27/2023 Influenza Vaccine (#1) 2025 , 09/06/2023, 09/24/2022, Additional history exists Cervical Cancer Screening: Pap Smear 08/20/2026 08/20/2023 Cholesterol Screening (Lipid Panel) 05/10/2030 05/10/2025, 04/10/2024 DTaP,Tdap,and Td Vaccines (2 - Td or Tdap) 04/08/2034 04/08/2024 Pneumococcal Vaccine: Pediatrics (0 to 5 Years) and At-Risk Patients (6 to 49 Years) Completed 04/08/2024 Hepatitis B Vaccines Completed 05/07/2025, 12/29/2021, 11/29/2021 HIB Vaccines Aged Out No longer eligi ble based on patient's age to complete this topic HPV Vaccines Aged Out No longer eligi ble based on patient's age to complete this topic Hepatitis A Vaccines Aged Out No long er eligible based on patient's age to complete this topic IPV Vaccines Aged Out No longer eligi ble based on patient's age to complete this topic MMR Vaccines Aged Out No longer eligi ble based on patient's age to complete this topic Meningococcal ACWY Vaccine Aged Out N o longer eligible based on patient's age to complete this topic Meningococcal B Vaccine Aged Out No l onger eligible based on patient's age to complete this topic RSV Immunization Patients Under 20 months Aged Out No longer eligible based on patient's age to complete this topic Varicella Vaccines Aged Out No longer eligible based on patient's age to complete this topic Insurance Care Teams Transition Assistant Relationship Specialty Start Date End Date Monica Zamorano MD [address] [place] [address] PCP - General Internal Medicine 10/07/18
--- OUTSIDE RECORDS SUMMARY | 2025-07-14 08:20 | XMS_ITS | Encounter Summary ---
Author Organization [employer] Address [address] [place] [address] [address] [place] [address] Care Team Providers Care Concessions Manager Name Role Phone Monica Zamorano MD Primary Care Provider [phone] Encounter Details Date Type Department Care Team ([facility] st Contact Info) Description 04/10/2024 Orders Only [facility] [address] [place], [place] [phone] Monica Zamorano MD [address] [place] [address] Vitamin D deficiency (Primary Dx); Microcytic anemia Social History Tobacco Use Types Packs/Day Years Used Date Smoking Tobacco: Never Smokeless Tobacco: Never Alcohol Use Standard Drinks/Week Comments Never 0 (1 standard drink = 0.6 oz pur e alcohol) Depression Answer Date Recorded Patient Health Questionnaire-9 Score 4 04/08/2024 Patient Health Questionnaire-9 Score 4 04/08/2024 Last PHQ-9: Questionnaire Data Not on file 0 04/08/2024 Housing Stability Answer Date Recorded What is your housing situation today? I have brandi johns 03/31/[address] you li ve. Do you have problems with any of the following? None of the above 03/31/2024 Food Insecurity Answer Date Recorded Within the past 12 months, y ou worried that your food would run out before you got money to buy more: Never True 03/31/2024 Within the past 12 months,th e food you bought just didn't last and you didn't have enough money to get more: Never True Transportation Answer Date Recorded In the past 12 months, has l ack of transportation kept you from medical appts, meetings, work or from getting things needed for daily living? No 03/31/2024 Utilities Answer Date Recorded In the past 12 months, has t he electric, gas, oil or water company threatened to shut off services in your home? No 03/31/2024 Depression Answer Date Recorded Patient Health Questionnaire-2 Score 0 04/08/2024 Comments No Sex and Gender Information Value Date Recorded Sex Assigned at Female 10/01/2022 10:21 AM EDT Legal Sex Female 10:21 AM EDT Gender Identity Female 10/01/2022 10:21 AM EDT Sexual Orientation Straight 10/01/2022 10 :21 AM EDT documented as of this encounter Plan of Treatment Upcoming Encounters Date Type Department Care Team ([facility] st Contact Info) Description 07/20/2025 1:15 PM EDT Clinical Support [facility] [address] [place] [phone] 07/30/2025 4:00 PM EDT Office Visit [facility] [address] [place] [phone] Monica Zamorano MD [address] [place] [phone] documented as of this encounter Procedures Procedure Name Priority Date/Time Associated Diagnosis Comments IRON AND TOTAL IRON BINDING CAPACITY Routine 04/14/2024 4:29 PM EDT Microcytic anemia RETICULOCYTE COUNT Routine 04/14/2024 4: 29 PM EDT Microcytic anemia FERRITIN Routine 04/14/2024 4:29 PM EDT Microcytic anemia documented in this encounter Results * (ABNORMAL) Reticulocyte Count (04/14/2024 4:29 PM EDT) Reticulocytes Absolute 0.045 0.026 - 0.095 X10*6/uL [facility] Immature Retic Fraction 17.0(H) 3.0 - 15.9 % [facility] Retic HGB Equivalent 30.7 30.0 - 35.0 pg [facility] Reticulocyte Percent 1.0 0.5 - 1.8 % [facility] Blood Venous blood specimen / Unknown 04/14/2024 4:29 PM EDT 04/14/2024 5:52 PM EDT Monica Zamorano MD LAB BLOOD ORDERABLES Final Result Performing Organization Address City/[facility]/ZIP Co de Phone Number [facility] [address] [place] [phone] [phone] * Ferritin (04/14/2024 4:29 PM EDT) Ferritin 25 10 - 250 ng/mL [facility] Blood Venous blood specimen / Unknown 04/14/2024 4:29 PM EDT 04/14/2024 5:52 PM EDT us Monica Zamorano MD LAB BLOOD ORDERABLES Final Result Performing Organization Address City/[facility]/ZIP Co de Phone Number [facility] [address] [place] [phone] * Iron And Total Iron Binding Capacity (04/14/2024 4:29 PM EDT) Iron 40 30 - 160 mcg/dL [facility] Total Iron Binding Capacity 261 228 - 428 mcg/dL [facility] Percent Iron Saturation 15 15 - 50 % [facility] Unsaturated Iron Binding 221 ug/dL [facility] Blood Venous blood specimen / Unknown 04/14/2024 4:29 PM EDT 04/14/2024 5:52 PM EDT Monica Zamorano MD LAB BLOOD ORDERABLES Final Result Performing Organization Address City/[facility]/ZIP Co de Phone Number [facility] [address] [place] [phone] [phone] documented in this encounter Visit Diagnoses Diagnosis Vitamin D deficiency- Primary Microcytic anemia Unspecified iron deficiency anemia documented in this encounter Additional Health Concerns Assessment Noted Time PHQ-9 Depression Total Score: 4 04/08/20 24 11:45 AM EDT documented as of this encounter Care Teams Concessions Manager Relationship Specialty Start Date End Date Monica Zamorano MD [address] [place] [phone] PCP - General Internal Medicine 10/23/13 documented as of this encounter
== END 2025-07-14 08:16 | disposition home or self-care (01) ==
LOC: HO.MAMMO 08:15
PROVIDERS: PCP Internal Medicine; Visit Provider Internal Medicine
DX: Z12.31 Encounter for screening mammogram for malignant neoplasm of breast (principal)
CPT/HCPCS: 77063; 77067

== ENCOUNTER → 2025-07-14 08:30 | Outpatient (BNV) | payer OTHER, SELFPAY | PROVIDERS: PCP Internal Medicine; Visit Provider Radiology Body Imaging | DX: Z12.31 Encounter for screening mammogram for malignant neoplasm of breast (principal) | CPT/HCPCS: 77063; 77067 ==